=== PATIENT | female | born 1985 | race African-American/Black ===

== ENCOUNTER 2023-11-15 09:50 | Emergency (ER) | payer BC ==
[~2023-11-15] VITALS: Ht 172.7 cm; Wt 100.0 kg
[2023-11-15] MEDS ORDERED: METHYLPREDNISOLONE SOD SUCC 125MG/2ML (ACT-O-VIAL) IV ONE (10:30)
[2023-11-15] MEDS: DIPHENHYDRAMINE 50MG/ML VIAL IV ONE (10:35)
[2023-11-15] MEDS: FAMOTIDINE 20MG/2ML VIAL IV ONE (10:35)
[2023-11-15 10:45] VITALS: PULSE 87; RESP 28; O2SAT 96
[2023-11-15 11:13] LABS: CHLORIDE 108 mEq/L (98-107); POTASSIUM 4.6 mEq/L (3.5-5.1); SODIUM 137 mEq/L (136-145)
[2023-11-15 11:14] LABS: CARBON DIOXIDE 22 mEq/L (21-32)
[2023-11-15 11:15] LABS: CALCIUM 8.9 mg/dL (8.7-10.4)
[2023-11-15] MEDS: ALBUTEROL (0.083%) 2.5MG/3ML NEB HHN STA (11:18)
[2023-11-15 11:19] LABS: CREATININE 0.8 mg/dL (0.6-1.0); GLUCOSE 91 mg/dL (70-105); UREA NITROGEN BLOOD 8 mg/dL (9-23)
[2023-11-15 11:24] LABS: BASOPHILS % 0.9 % (0.0-2.0); DIFFERENTIAL COMMENT 0; EOSINOPHILS % 1.1 % (0.0-5.0); HEMATOCRIT. 38.8 % (36.0-48.0); HEMOGLOBIN. 12.1 g/dL (12.0-16.0); MEAN CORPUSCULAR HEMOGLOBIN 24.3 pg (28.0-32.0); MEAN CORPUSCULAR HGB CONC 31.3 g/dL (31.0-37.0); MEAN CORPUSCULAR VOLUME 77.6 fL (81.0-99.0); MEAN PLATELET VOLUME 8.8 fl (7.4-10.4); PLATELET 385 x1000/uL (130-400); RED CELL DISTRIBUTION WIDTH 16.9 % (11.6-14.6); WHITE BLOOD COUNT 8.4 x1000/uL (4.5-11.0)
[2023-11-15 13:50] VITALS: BP 129/107; PULSE 80; RESP 14; TEMP 98.3; O2SAT 100
== END 2023-11-15 14:09 | disposition left against medical advice (07) ==
LOC: ER 10:08 → EDBEDREQTM 12:01 → EDBEDREQ 12:01 → CANBEDREQ 14:02 → ER 14:09
DX: T78.49XA Other allergy, initial encounter (principal); D64.9 Anemia, unspecified; Z98.890 Other specified postprocedural states; Y92.89 Other specified places as the place of occurrence of the external cause
CPT/HCPCS: 80048; 85025; 36415; 94640; 96374; 96375; 99291; J1200; J3490; Z7610 ×3; J2919